=== PATIENT | male | born 1955 | race Caucasian/White ===

== ENCOUNTER 2023-11-05 06:24 | Day surgery (SDC) | payer OTHER, MEDICAID ==
[~2023-11-05] VITALS: Ht 177.8 cm; Wt 110.2 kg
[2023-11-05] MEDS ORDERED: GENTAMICIN SULFATE 400 MG in NS 100 ML IV ONE (07:30)
[2023-11-05] MEDS ORDERED: AMPICILLIN SODIUM 1 GM in NS 50 ML IV ONE (07:30)
[2023-11-05] MEDS ORDERED: fentaNYL CITRATE/PF 100 MCG/2 ML AMP ONE (07:35)
[2023-11-05] MEDS ORDERED: MIDAZOLAM HCL 5 MG/5 ML VIAL ONE (07:35)
[2023-11-05] MEDS ORDERED: SIMETHICONE 40 MG/0.6 ML ML ONE (07:47)
[2023-11-05 21:08] VITALS: BP_SYST 117; PULSE 86; RESP 16; TEMP 97.6; O2SAT 95
== END 2023-11-05 09:15 | disposition home or self-care (01) ==
LOC: SDS 06:24 → SMU 06:26 → SDS 09:15
PROVIDERS: ATTEND Internal Medicine Gastroenterology
DX: R19.5 Other fecal abnormalities (principal); D12.3 Benign neoplasm of transverse colon; D12.4 Benign neoplasm of descending colon; Z99.2 Dependence on renal dialysis; Z86.010 Personal history of colon polyps; N18.6 End stage renal disease; K57.30 Diverticulosis of large intestine without perforation or abscess without bleeding; K64.8 Other hemorrhoids; Z79.899 Other long term (current) drug therapy; Z87.891 Personal history of nicotine dependence
CPT/HCPCS: 45385; 99152; 88305; G0378; J0290; J1580; J2250; J3010; 45384